=== PATIENT | female | born 1965 | race Caucasian/White ===

== ENCOUNTER → 2018-11-15 16:53 | Outpatient (CLI) | payer SELFPAY ==
[2018-11-15 17:09] LABS: Prothrombin Time (Protime)PT. 46.8 SECONDS (11.7-14.9)
== END ==
PROVIDERS: Referring Provider Family Medicine; Visit Provider Family Medicine
DX: R79.1 Abnormal coagulation profile (principal)
CPT/HCPCS: 85610

== ENCOUNTER 2020-08-04 22:20 | Emergency (ER) | payer MEDICARE, SELFPAY ==
[2020-08-04 22:22] VITALS: BP 125/72; PULSE 65; RESP 16; TEMP 35.8; O2SAT 99; BMI 26.9
--- NOTE | 2020-08-04 22:30 | RAD_ITS ---
STUDY: X-RAY - RIGHT ANKLE REASON FOR EXAM: Female, 54 years old. Twisted ankle, pain to lateral foot. TECHNIQUE: 3 view(s) of the ankle. COMPARISON: None. FINDINGS: Normal visualized distal tibia and fibula. Normal medial and lateral malleoli. Normal tibiotalar articulation and ankle mortise. Normal visualized talus and calcaneus. The visualized subtalar, talonavicular, calcaneocuboid and tarsal articulations are normal. Soft tissue swelling. RAD/Ankle min 3 Views IMPRESSION: Soft tissue injury without underlying fracture or dislocation. Electronically Signed: Zenaida Crandall MD at 22:52 EDT , Service support ,
--- NOTE | 2020-08-04 22:30 | RAD_ITS ---
STUDY: X-RAY - RIGHT FOOT CLINICAL: Female, 54 years old. Twisted ankle, pain to lateral part of foot. TECHNIQUE: 3 view(s) of the foot. COMPARISON: None. FINDINGS: Normal talus, calcaneus, and tarsal bones. Normal visualized subtalar, talonavicular, calcaneocuboid, tarsal and tarsometatarsal articulations. Normal metatarsi. Normal metatarsophalangeal joint of the great toe. Normal tibial and fibular sesamoid bones. Normal interphalangeal joint of the great toe. Normal phalanges of the great toe. Normal second through fifth metatarsophalangeal joints. Normal interphalangeal joints and phalanges of the lesser toes. The soft tissue structures are unremarkable. There is no demonstrated fracture. RAD/Foot min 3 Views IMPRESSION: Normal x-ray examination of the foot. Electronically Signed: Zenaida rCandall MD at 22:54 EDT , Service support ,
--- NOTE | 2020-08-04 22:55 | ED.VIS.LOWEX ---
History of Present Illness Chief Complaint: Upper Extremity Injury Informant: Patient Occurred: Today Mechanism/Context: Injury - Took a step while standing in conversation and accidentally rolled/twisted her right ankle Context: Sudden Onset Timing: Continuous Quality of Pain: Aching Location: Right lateral ankle/foot Current Severity: Moderate Maximum Severity: Severe Worsened by: Prior to weight-bear which she is unable Relieved by: Remaining still/rest Associated Symptoms: Negative for: Parasthesia, Weakness, Loss of Funtion Narrative: Denies any other injury or fall. Unable to bear weight on her right lower extremity due to injury. Past Medical History - Allergies and Home Meds Allergies/Adverse Reactions: Allergies natalizumab [From Tysabri] Allergy (Verified 08/04/20 22:22) Anaphylaxis bupropion [From Wellbutrin] Adverse Reaction (Verified 08/04/20 22:22) NEEDS FOLLOW-UP I GO OUT OF MY HEAD sertraline [From Zoloft] Adverse Reaction (Verified 08/04/20 22:22) NEEDS FOLLOW-UP I GO OUT OF MY HEAD Primary Care Physician: Mandeep Steele MD [Primary Care Provider] - Past Medical History: None Smoking Status: Never smoker Review of Systems General: Denies: Chills, Fever, Sweats Musculoskeletal: Reports: Extremity Pain Skin: Denies: Rash, Wounds Neurological: Denies: Headache, Weakness, Numbness Physical Exam Vital Signs/Narrative: Vital Signs Temp Pulse Resp BP Pulse Ox 08/04/20 22:22 96.5 F L 65 16 125/72 H 99 Inital Vital Signs reviewed: Yes - Extremity Exam Right Ankle: Limited ROM, - - Tenderness in the soft tissues anterior to the lateral malleolus without bony lateral or medial malleoli or pain/tenderness. Nontender proximal fibula and rest of the knee/fibula.. Negative for: Deformity Right Foot: - - Tender base of the fifth metatarsal on the right foot. No other foot bony tenderness. General: Well nourished, Well developed Head: Normocephalic, Atraumatic ENT: No Trauma Skin: Normal color, No rash, No Trauma Neurological: Alert, Oriented x3, Cranial nerves II-XII grossly intact, Normal Strength, Normal Sensation Psychological: Normal affect, Normal Mood Diagnostic/Tx/Re-eval - Medical Decision Making On my interpretation, 3 views of the right ankle are negative. On my interpretation, 3 views of the right foot show a tiny avulsion fracture off the dorsal lateral aspect of the cuboid. There is no other fracture seen. Patient will be placed in a postop shoe, Riccardo wrap, offered crutches, and analgesics. ED Disposition - Plan for ED Patient: Disposition: Home or Assisted Living Diagnosis: Closed fracture of cuboid of right foot, Right ankle sprain Instructions: ED FOOT FRACTURE, ED Sprain Ankle Referrals: Mandeep Steele MD [Primary Care Provider] - Checo Sosa DPM [STAFF PHYSICIAN] - 1-2 Weeks
[2020-08-04 23:09] VITALS: RESP 16
[2020-08-04] MEDS: Ibuprofen 600 MG Tablet PO (23:09)
== END 2020-08-04 23:22 | disposition home or self-care (01) ==
PROVIDERS: Emergency Provider Emergency Medicine; PCP Family Medicine
DX: S92.211A Displaced fracture of cuboid bone of right foot, initial encounter for closed fracture (principal); S93.401A Sprain of unspecified ligament of right ankle, initial encounter; X50.1XXA Overexertion from prolonged static or awkward postures, initial encounter; Y93.9 Activity, unspecified; Y92.9 Unspecified place or not applicable
CPT/HCPCS: 73610; 73630; 99284